=== PATIENT | female | born 2000 | race Caucasian/White ===

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

== ENCOUNTER 2021-01-31 14:12 | Emergency (ER) | payer OTHER ==
[~2021-01-31] VITALS: Ht 165.1 cm; Wt 81.6 kg
[2021-01-31] MEDS ORDERED: PREDNISONE50 MG PO (15:14)
[2021-01-31] MEDS ORDERED: EPIPEN 2-P0.3 MG/0.3 IM (15:14)
[2021-01-31 15:18] VITALS: BP 140/77
== END 2021-01-31 15:32 | disposition home or self-care (01) ==
LOC: ED 14:12
DX: T78.40XA Allergy, unspecified, initial encounter (principal); X58.XXXA Exposure to other specified factors, initial encounter

== ENCOUNTER 2021-02-01 12:50 | Observation (INO) | payer OTHER ==
[~2021-02-01] VITALS: Ht 165.1 cm; Wt 82.0 kg
[~2021-02-01 12:50] MED LIST changes: +EPIPEN 2-P0.3 MG/0.3 IM; +PREDNISONE50 MG PO
[2021-02-01 16:40] LABS: HEMATOCRIT 42.2 % (37.0-47.0); HEMOGLOBIN 14.3 g/dl (12.0-16.0); IMMATURE GRANULOCYTES 0.4 % (0.0-5.0); MEAN CORPUSCULAR HGB 27.4 pG CALC (26.0-32.0); MEAN CORPUSCULAR HGB CONC 33.9 g/dL CAL (32.0-36.0); NEUT# 24.32 thou/uL (2.00-7.15); RED BLOOD COUNT 5.21 mill/uL (4.20-5.60); RED CELL DISTRI WIDTH 12.8 % (11.5-15.5)
[2021-02-01 16:48] LABS: ALBUMIN 4.3 g/dL (3.2-5.0); ALKALINE PHOSPHATASE 76 u/l (38-126); ANION GAP 14 (6-22 (CALC)); BILIRUBIN, TOTAL 0.5 mg/dL (0.0-1.4); BUN 12 mg/dL (7-17); BUN/CREATININE RATIO 17 (12-20 (CALC)); CARBON DIOXIDE 24 mmol/l (22-30); CHLORIDE 106 mmol/l (95-108); CREATININE 0.7 mg/dL (0.5-1.0); GFR > 60 ML/MIN (>=60 (CALC)); GFR FOR AFR.AMER. > 60 ML/MIN (>=60 (CALC)); POTASSIUM 3.9 mmol/l (3.5-5.1); SODIUM 140 mmol/l (137-146)
[2021-02-01 16:49] LABS: SGOT/AST 45 u/l (14-36)
[2021-02-01 20:00] VITALS: BP 132/64
[2021-02-01 22:00] VITALS: BP 112/46
[2021-02-01 23:00] VITALS: BP 135/55
[2021-02-02] VITALS (14 sets, daily range): BP systolic 102–148; BP diastolic 50–80
[2021-02-02 05:23] LABS: HEMATOCRIT 38.2 % (37.0-47.0); HEMOGLOBIN 13.1 g/dl (12.0-16.0); MEAN CELL VOLUME 80.9 fL CALC (80.0-100.0); MEAN CORPUSCULAR HGB 27.8 pG CALC (26.0-32.0); MEAN CORPUSCULAR HGB CONC 34.3 g/dL CAL (32.0-36.0); RED BLOOD COUNT 4.72 mill/uL (4.20-5.60); RED CELL DISTRI WIDTH 13.1 % (11.5-15.5)
[2021-02-02 05:41] LABS: ANION GAP 17 (6-22 (CALC)); BUN 8 mg/dL (7-17); BUN/CREATININE RATIO 14 (12-20 (CALC)); CARBON DIOXIDE 20 mmol/l (22-30); CHLORIDE 109 mmol/l (95-108); CREATININE 0.5 mg/dL (0.5-1.0); GFR > 60 ML/MIN (>=60 (CALC)); GFR FOR AFR.AMER. > 60 ML/MIN (>=60 (CALC)); SODIUM 141 mmol/l (137-146)
[2021-02-02 10:55] LABS: TSH, 3RD GENERATION 2.04 uIU/mL (0.47 - 4.68)
[2021-02-02] MEDS ORDERED: BENADRYL25 M1 PO (13:19)
[2021-02-02] MEDS ORDERED: PEPCID20 MG PO (13:20)
[2021-02-02] MEDS ORDERED: MEDDOSEPAK PO (13:21)
== END 2021-02-02 14:30 | disposition home or self-care (01) ==
LOC: ED 12:50 → ED-I 16:10 → ED 16:54 → ICU 16:55
PROVIDERS: Family Medicine; ADMIT Hospitalist; ATTEND Hospitalist
DX: L50.6 Contact urticaria (principal); F41.9 Anxiety disorder, unspecified; Z20.822 Contact with and (suspected) exposure to COVID-19

== ENCOUNTER 2021-07-31 15:40 | Emergency (ER) | payer OTHER ==
[~2021-07-31] VITALS: Ht 165.1 cm; Wt 95.0 kg
[~2021-07-31 15:40] MED LIST changes: +MEDDOSEPAK PO; +PEPCID20 MG PO
[2021-07-31 16:07] VITALS: BP 136/86
[2021-07-31] MEDS ORDERED: VOLTAREN1%GEL TOP (18:45)
[2021-07-31 18:50] VITALS: BP 136/86
== END 2021-07-31 18:56 | disposition home or self-care (01) ==
LOC: ED 15:40
DX: M25.561 Pain in right knee (principal); M25.571 Pain in right ankle and joints of right foot; M79.671 Pain in right foot; F41.9 Anxiety disorder, unspecified; F31.9 Bipolar disorder, unspecified; X50.0XXA Overexertion from strenuous movement or load, initial encounter

== ENCOUNTER 2022-10-09 10:29 | Emergency (ER) | payer OTHER ==
[2022-10-09] VITALS (8 sets, daily range): BP systolic 112–132; BP diastolic 68–88
[~2022-10-09] VITALS: Ht 165.1 cm; Wt 96.2 kg
[~2022-10-09 10:29] MED LIST changes: +VOLTAREN1%GEL TOP
[2022-10-09 10:52] LABS: URINE BLOOD DIPSTICK Moderate (NEGATIVE); URINE COLOR Yellow; URINE GLUCOSE - DIPSTICK Negative (NEGATIVE); URINE KETONE Negative (NEGATIVE); URINE LEUK ESTERASE Negative (NEGATIVE); URINE NITRITE - DIPSTICK Negative (Negative); URINE PROTEIN - DIPSTICK Trace mg/dL (NEG-TRACE); URINE SPECIFIC GRAVITY >=1.030; URINE UROBILINOGEN - DIPSTICK 0.2 E.U./dL (0.2)
[2022-10-09 11:00] LABS: URINE BACTERIA MODERATE hpf; URINE SQUAMOUS EPITHELIAL CELL FEW EPI/hpf (0-FEW); URINE WBC 0-2 WBC/hpf (0-5)
[2022-10-09] MEDS ORDERED: TAMSULOSIN0.4 MG PO (12:56)
[2022-10-09] MEDS ORDERED: IBUPROFEN600 MG PO (12:56)
[2022-10-09] MEDS ORDERED: BACTRIM DS1 TAB PO (12:56)
== END 2022-10-09 13:38 | disposition home or self-care (01) ==
LOC: ED 10:29
PROVIDERS: Family Medicine
DX: N20.0 Calculus of kidney (principal); N39.0 Urinary tract infection, site not specified; F41.9 Anxiety disorder, unspecified; F31.9 Bipolar disorder, unspecified